=== PATIENT | female | born 1970 | race Caucasian/White ===

== ENCOUNTER 2023-05-21 02:12 | Emergency (ER) | payer OTHER, SELFPAY ==
[2023-05-21 02:13] VITALS: BP 183/130; PULSE 95; RESP 18; TEMP 36.9; O2SAT 99; BMI 30.5
--- NOTE | 2023-05-21 02:33 | CTR_ITS ---
PROCEDURE INFORMATION: Exam: CT Head Without Contrast Exam date and time: 05/21/2023 2:48 AM Age: 53 years old Clinical indication: Pain; Headache; Patient HX: Ex smoker, no HX of cancer; Additional info: Fall, headache, HTN TECHNIQUE: Imaging protocol: Computed tomography of the head without contrast. Radiation optimization: All CT scans at this facility use at least one of these dose optimization techniques: automated exposure control; mA and/or kV adjustment per patient size (includes targeted exams where dose is matched to clinical indication); or iterative reconstruction. REPORTING DATA: Count of CT and Cardiac NM exams in prior 12 months: This patient has received 0 known CTs and 0 known cardiac nuclear medicine studies in the 12 months prior to the current study. COMPARISON: No relevant prior studies available. RADIATION DOSE METRICS: Total DLP (mGy-cm): 1124.88 FINDINGS: Brain: There is no evidence of acute parenchymal hemorrhage, extra-axial collection, or acute infarction. There is no mass effect, midline shift, or downward herniation. Cerebral ventricles: No ventriculomegaly. Paranasal sinuses: There is mild paranasal sinus mucosal thickening. Mastoid air cells: Visualized mastoid air cells are well aerated. Bones/joints: Unremarkable. No acute fracture. Soft tissues: Unremarkable. CT/CT head wo con* [id number] IMPRESSION: No evidence of acute intracranial process.
--- NOTE | 2023-05-21 02:41 | ED_ITS ---
HPI - Headache General: Chief Complaint: Headache Stated Complaint: headache Time Seen by Provider: 05/21/23 02:14 History of Present Illness: Patient presents to the ER with complaints of headache. Patient states she fell a week ago and hit her head and since then she has been having this headache, feels weak all over and having a hard time getting out of bed doing her daily functions. Patient also says she is not on any blood pressure medicine but has high blood pressure Review of Systems General: Reports: 10 or more systems reviewed and unremarkable except in HPI and below Physical Exam Const: COMMON NORMALS: no acute distress, average body habitus, patient oriented x3, no limitations, healthy appearing, alert and well nourished HENMT: COMMON NORMALS: normocephalic, atraumatic, hearing grossly normal bilaterally, external ears normal, Normal external nose present, moist oral mucous membranes and oropharynx normal HEAD & SCALP: normocephalic and atraumatic NOSE: Normal external nose present EXTERNAL EAR: Yes external ears normal Eye: COMMON NORMALS: Equal, round and reactive pupils present, EOMs intact bilaterally, conjunctivae normal and no scleral icterus CONJUNCTIVA: Yes conjunctivae normal PUPIL: Yes Equal, round and reactive pupils present Neck/C-Spine: COMMON NORMALS: full ROM, no lymphadenopathy, supple, no meningeal signs, no JVD and Thyroid normal THYROID: Thyroid normal Chest: COMMONS NORMALS: normal inspection of the chest and normal palpation of entire chest wall Resp: COMMON NORMALS: normal respiratory effort, No retractions, No use of accessory muscles and clear to auscultation bilaterally AUSCULTATION: clear to auscultation bilaterally Cardio: COMMON NORMALS: no JVD, regular rate, regular rhythm, S1 normal heart sound present, S2 normal heart sound present, No gallops present (Cardio), No clicks present (Cardio), No murmurs present (Cardio) and No rub (Cardio) RATE: regular rate RHYTHM: regular rhythm HEART SOUNDS: S1 normal heart sound present and S2 normal heart sound present GI: COMMON NORMALS: Normal to inspection, nondistended, normoactive bowel sounds present, Soft to palpation, non-tender, No hepatosplenomegaly present and no masses PALPATION: Yes Soft to palpation and Yes No hepatosplenomegaly present Neuro: COMMON NORMALS: patient oriented x3 SENSORIUM/ORIENTATION: Yes alert MENINGEAL SIGNS: Yes no meningeal signs Course Vital Signs: Vital signs: Vital Signs Temperature 98.5 F 05/21/23 02:13 Pulse Rate 101 H 05/21/23 04:08 Respiratory Rate 18 05/21/23 04:08 Blood Pressure 149/82 05/21/23 04:08 Pulse Oximetry 97 05/21/23 04:08 Oxygen Delivery Me thod Room Air 05/21/23 04:08 MDM - Headache Medical Decision Making patient presents to the ER with complaints of headache and high blood pressure. Patient was given hydralazine 20 mg, Toradol 30 mg, Reglan 10 mg and a liter no rmal saline. Patient's blood pressure improved from 183/130 to 149/82. CT scan all of which was essentially benign. Except for her TSH which was elevated at 63.17. Patient will be placed on Synthroid 25 mcg instructed to follow-up with her PCP for further evaluation and testing and management. Differential Diagnosis Likely headache; Unlikely migraine, tension headache, subarachnoid hemorrhage, meningitis, sinusitis or postconcussion syndrome Medical Records I reviewed the patient's medical records. Lab Data I reviewed the patient's lab results. 05/21/23 02:43 05/21/23 02:[address] 05/21/23 02:33 IMPRESSION: No evidence of acute intracranial process. Laboratory Results WBC 8.90 10^3/uL (3.29-11.43) 05/21/23 02:43 RBC 4.86 10^6/uL (3.85-5.65) 05/21/23 02:43 Hgb 15.00 g/dL (11.27-16.99) 05/21/23 02:43 Hct 44.8 % (36-47) 05/21/23 02:43 MCV 92.2 fl (85-98) 05/21/23 02:43 MCH 30.9 pg (27-33) 05/21/23 02:43 MCHC 33.5 g/dL (30-55) 05/21/23 02:43 RDW 13.2 % (12.1-15.1) 05/21/23 02:43 Plt Count 276 10^3/cmm (157-399) 05/21/23 02:43 MPV 10.7 fL (7.4-10.4) H 05/21/23 02:43 Neut % (Auto) 84.0 % 05/21/23 02:43 Lymph % (Auto) 5.2 % 05/21/23 02:43 [place] % (Auto) 7.2 % 05/21/23 02:43 Eos % (Auto) 1.9 % 05/21/23 02:43 Baso % (Auto) 0.6 % 05/21/23 02:43 Neut # (Auto) 7.48 10^3/uL (1.8-7.7) 05/21/23 02:43 Lymph # (Auto) 0.5 10^3/uL (0.8-4.8) L 05/21/23 02:43 [place] # (Auto) 0.6 10^3/uL (0.2-0.9) 05/21/23 02:43 Eos # (Auto) 0.2 10^3/uL (0.0-0.8) 05/21/23 02:43 Baso # (Auto) 0.1 10^3/uL (0.0-0.1) 05/21/23 02:43 Nucleated RBC % (auto) 0 % 05/21/23 02:43 Nucleated RBCs # 0.0 /100WBC 05/21/23 02:43 Sodium 132 mmol/L (136-145) L 05/21/23 02:43 Potassium 3.5 mmol/L (3.5-5.1) 05/21/23 02:43 Chloride 95 mmol/L (98-107) L 05/21/23 02:43 Carbon Dioxide 26 mmol/L (22-29) 05/21/23 02:43 Anion Gap 14.5 (5-19) 05/21/23 02:43 BUN 11 mg/dL (6-20) 05/21/23 02:43 Creatinine 1.1 mg/dL (0.5-0.9) H 05/21/23 02:43 GFR Calculation 52.2 mL/min (90-130) L 05/21/23 02:43 Glucose 114 mg/dL (65-115) 05/21/23 02:43 Calculated Osmolality 274 mOsm/kg (285-295) L 05/21/23 02:43 Calcium 9.8 mg/dL (8.5-10.5) 05/21/23 02:43 Magnesium 1.9 mg/dL (1.7-2.3) 05/21/23 02:43 Total Bilirubin 0.6 mg/dL (0.15-1.2) 05/21/23 02:43 AST 16 U/L (0-32) 05/21/23 02:43 ALT 8 U/L (0-33) 05/21/23 02:43 Alkaline Phosphatase 80 U/L (35-105) 05/21/23 02:43 Total Protein 7.2 g/dL (6.6-8.7) 05/21/23 02:43 Albumin 4.0 g/dL (3.5-5.2) 05/21/23 02:43 Globulin 3.2 g/dL (1.3-4.6) 05/21/23 02:43 TSH 63.17 uIU/mL (0.27-4.20) H 05/21/23 02:43 Urine Color Yellow (Yellow) 05/21/23 03:50 Urine Appearance Sl hazy (CLEAR) A 05/21/23 03:50 Urine pH 6 (5-7) 05/21/23 03:50 Ur Specific [place] 1.015 (1.005-1.030) 05/21/23 03:50 Urine Protein Neg (Negative) 05/21/23 03:50 Urine Glucose (UA) Norm (Normal) 05/21/23 03:50 Urine Ketones 1+ (Negative) H 05/21/23 03:50 Urine Blood Neg (Negative) 05/21/23 03:50 Urine Nitrate Negative (Negative) 05/21/23 03:50 Urine Bilirubin Neg (Negative) 05/21/23 03:50 Urine Urobilinogen Neg mg/dL (Negative) 05/21/23 03:50 Ur Leukocyte Esterase Trace (Negative) H 05/21/23 03:50 Urine RBC 0-4 /hpf (0-2) H 05/21/23 03:50 Urine WBC 5-10 /hpf (0-5) H 05/21/23 03:50 Ur Squamous Epith Cells 10-15 /hpf (0-5) H 05/21/23 03:50 Amorphous Sediment 1+ /hpf 05/21/23 03:50 Urine Bacteria 1+ /hpf (NONE) H 05/21/23 03:50 Urine Mucus 2+ /hpf 05/21/23 03:50 Urine Opiates Screen Negative ng/mL (Negative) 05/21/23 03:50 Ur Barbiturates Screen Negative ng/mL (Negative) 05/21/23 03:50 Ur Phencyclidine Scrn Negative ng/mL (Negative) 05/21/23 03:50 Ur Amphetamines Screen Positive ng/mL (Negative) H 05/21/23 03:50 U Benzodiazepines Scrn Negative ng/mL (Negative) 05/21/23 03:50 Urine Cocaine Screen Negative ng/mL (Negative) 05/21/23 03:50 U Marijuana (THC) Screen Positive ng/mL (Negative) H 05/21/23 03:50 All radiology interpretation(s) finalized by discharge Discharge Plan Discharge Patient Disposition: Home Clinical Impression: Polysubstance abuse Headache Qualifiers: Headache type: unspecified Headache chronicity pattern: acute headache Intractability: not intractable Qualified Code(s): R51.9 - Headache, unspecified Hypertension Qualifiers: Hypertension type: unspecified Qualified Code(s): I10 - Essential (primary) hypertension Hypothyroidism Qualifiers: Hypothyroidism type: unspecified Qualified Code(s): E03.9 - Hypothyroidism, unspecified Condition: Stable Prescriptions: New Synthroid 50 mcg tablet 50 mcg PO DAILY Qty: 30 0RF lisinopril 10 mg tablet 10 mg PO DAILY Qty: 30 0RF Discharge Orders: Discharge ED (Routine); Ordered 05/21/23 Ordered By: Dalton Roque Patient Instructions: Headache, Hypothyroidism (ED), Hypertension (ED) Activity Restrictions/Additional Instructions: please take all your medicine as prescribed. Please do not use any more illicit substances. Please follow-up with your family practice doctor in the next 7 to 10 days for further evaluation treatment and management of your chronic conditions. Coding Level of Care Code ED [employer] Curator for Valerie Nava
[2023-05-21] MEDS: sodium chloride 0.9% 1,000 ML 999 ML IV (02:45)
[2023-05-21] MEDS: hyDRALAzine 20 mg/mL INJ 1 mL IVP (02:45)
[2023-05-21] MEDS: ketorolac 30 mg/mL INJ IVP (02:45)
[2023-05-21] MEDS: metoclopramide 5 mg/mL SDV 2 mL 10 MG IVP (02:45)
[2023-05-21 02:47] LABS: Basophils # 0.1 10^3/uL (0.0-0.1); Basophils % 0.6 %; Eosinophils # 0.2 10^3/uL (0.0-0.8); Eosinophils % 1.9 %; Hematocrit 44.8 % (36-47); Lymphocytes # 0.5 10^3/uL (0.8-4.8); Lymphocytes % 5.2 %; Mean Corpuscular HGB Conc 33.5 g/dL (30-55); Mean Corpuscular Hemoglobin 30.9 pg (27-33); Mean Corpuscular Volume 92.2 fl (85-98); Mean Platelet Volume 10.7 fL (7.4-10.4); Monocytes # 0.6 10^3/uL (0.2-0.9); Monocytes % 7.2 %; Neutrophils # 7.48 10^3/uL (1.8-7.7); Nucleated Red Blood Cells % 0 %; Platelet Count 276 10^3/cmm (157-399); Red Blood Count 4.86 10^6/uL (3.85-5.65); Red Cell Distribution Width 13.2 % (12.1-15.1)
[2023-05-21 03:12] VITALS: BP 129/90; PULSE 105; RESP 18; O2SAT 95
[2023-05-21 03:16] LABS: Alanine Aminotransferase 8 U/L (0-33); Alkaline Phosphatase 80 U/L (35-105); Anion Gap 14.5 (5-19); Aspartate Amino Transferase 16 U/L (0-32); Blood Urea Nitrogen 11 mg/dL (6-20); Calcium 9.8 mg/dL (8.5-10.5); Carbon Dioxide 26 mmol/L (22-29); Chloride 95 mmol/L (98-107); Globulin 3.2 g/dL (1.3-4.6); Glomerular Filtration Rate 52.2 mL/min (90-130); Glucose 114 mg/dL (65-115); Magnesium 1.9 mg/dL (1.7-2.3); Osmolality Calculated 274 mOsm/kg (285-295); Potassium 3.5 mmol/L (3.5-5.1); Sodium 132 mmol/L (136-145); Thyroid Stimulating Hormone 63.17 uIU/mL (0.27-4.20); Total Bilirubin 0.6 mg/dL (0.15-1.2); Total Protein 7.2 g/dL (6.6-8.7)
[2023-05-21 04:08] VITALS: BP 149/82; PULSE 101; RESP 18; O2SAT 97
[2023-05-21 04:21] LABS: Amphetamines Screen Urine Positive (Negative); Barbiturates Screen Urine Negative (Negative); Benzodiazepines Screen Urine Negative (Negative); Cocaine Screen Urine Negative (Negative); Opiate Screen Urine Negative (Negative); PCP Screen Urine Negative (Negative); THC Screen Urine Positive (Negative)
[2023-05-21 04:26] LABS: Add Urine Culture? No; Add Urine Microscopic? YES; Amorphous Sediment Urine 1+ /hpf; Bacteria Urine 1+ /hpf; Bilirubin Urine Neg (Negative); Blood Urine Neg (Negative); Glucose Urine UA Norm (Normal); Ketones Urine 1+ (Negative); Leukocyte Esterase Urine Trace (Negative); Mucus Urine 2+ /hpf; Nitrate Urine Negative (Negative); Protein Urine Neg (Negative); RBC Urine 0-4 /hpf (0-2); Specific Gravity, Urine 1.015 (1.005-1.030); Urine Appearance SL Hazy (CLEAR); Urine Color Yellow (Yellow); Urobilinogen Urine Neg (Negative); pH Urine 6 (5-7)
[2023-05-21 04:52] VITALS: BP 160/89; PULSE 81; RESP 18; O2SAT 98
== END 2023-05-21 04:53 | disposition home or self-care (01) ==
PROVIDERS: Emergency Provider Emergency Medicine
DX: R51.9 Headache, unspecified (principal); I10 Essential (primary) hypertension; E03.9 Hypothyroidism, unspecified; F19.10 Other psychoactive substance abuse, uncomplicated
CPT/HCPCS: 36415; 70450; 80053; 80306; 81001; 83735; 84443; 85025; 96361; 96374; 96375; 99285; J0360; J1885; J2765; J7030

== ENCOUNTER → 2023-09-24 11:14 | Outpatient (BNVA) | payer OTHER, SELFPAY | PROVIDERS: PCP Nurse Practitioner; Visit Provider Podiatrist Foot & Ankle Surgery | DX: M72.2 Plantar fascial fibromatosis; M20.5X2 Other deformities of toe(s) (acquired), left foot; M20.5X1 Other deformities of toe(s) (acquired), right foot; S93.401A Sprain of unspecified ligament of right ankle, initial encounter; W19.XXXA Unspecified fall, initial encounter | CPT/HCPCS: 73610; 73630 ==

== ENCOUNTER 2023-09-24 12:05 | Outpatient (CLI) | payer OTHER, SELFPAY | END 2023-09-24 12:06 | disposition home or self-care (01) | LOC: SPT 12:06 | PROVIDERS: PCP Nurse Practitioner; Visit Provider Podiatrist Foot & Ankle Surgery | DX: Z46.89 Encounter for fitting and adjustment of other specified devices (principal); S93.401D Sprain of unspecified ligament of right ankle, subsequent encounter; X58.XXXD Exposure to other specified factors, subsequent encounter | CPT/HCPCS: 97760; 99203; L1902 ==